=== PATIENT | female | born 1990 | race African-American/Black ===

== ENCOUNTER 2017-06-14 22:25 | Inpatient (IN) ==
[2017-06-14] MEDS ORDERED: KEFZOL 1 GM/D5W 1 GM/50 ML IVPB IV PRN (22:57)
[2017-06-14] MEDS ORDERED: ZOFRAN IV PRN (22:57)
[2017-06-14] MEDS ORDERED: PEPCID IV PRN (22:57)
[2017-06-14] MEDS ORDERED: STADOL IV PRN (22:57)
[2017-06-14] MEDS ORDERED: REGLAN PO ONE (22:57)
[2017-06-14] MEDS ORDERED: TYLENOL PO PRN (22:57)
[2017-06-14] MEDS ORDERED: PEPCID PO ONE (22:57)
[2017-06-14] MEDS ORDERED: PEPCID PO PRN (22:57)
[2017-06-14] MEDS ORDERED: PITOCIN 30 UNITS/LR 30 UNITS/500 ML IV.SOLN IV SCH (22:57)
[2017-06-14] MEDS ORDERED: SODIUM CHLORIDE 0.9% INJ SCH (23:00)
[2017-06-14 23:02] LABS: URINE SOURCE VOIDED
[2017-06-14] MEDS ORDERED: LR 1,000 ML ONE (23:08)
[2017-06-14 23:09] LABS: UR AMPHETAMINES QUAL NONE DETECTED (NONE DETECT); UR BARBITUATES QUAL NONE DETECTED (NONE DETECT); UR BENZODIAZEPIN QUAL NONE DETECTED (NONE DETECT); UR CANNABINOIDS QUAL NONE DETECTED (NONE DETECT); UR COCAINE QUAL NONE DETECTED (NONE DETECT); UR MDMA QUAL NONE DETECTED (NONE DETECT); UR METHADONE QUAL NONE DETECTED (NONE DETECT); UR METHAMPHETAMINE QUAL NONE DETECTED (NONE DETECT); UR OPIATES QUAL NONE DETECTED (NONE DETECT); UR OXYCODONE QUAL NONE DETECTED (NONE DETECT); UR PCP QUAL NONE DETECTED (NONE DETECT); UR TCA QUAL NONE DETECTED (NONE DETECT)
[2017-06-14 23:13] LABS: BILIRUBIN URINE NEGATIVE (NEGATIVE); BLOOD URINE NEGATIVE (NEGATIVE); CLARITY CLEAR (CLEAR); COLOR YELLOW; GLUCOSE URINE NEGATIVE (NEGATIVE); LEUKOCYTES URINE TRACE (NEGATIVE); NITRITE URINE NEGATIVE (NEGATIVE); PROTEIN URINE NEGATIVE (NEGATIVE); SP GRAVITY URINE 1.015; UROBILINOGEN URINE NORMAL
[2017-06-14] MEDS: LR 1,000 ML IV SCH (23:15)
[2017-06-14 23:47] LABS: MANUAL DIFF NEEDED? NO
[2017-06-14 23:52] LABS: BASO% 0.1 % (0.0-0.8); EOS# 0.03 X1000 (0.0-0.7); EOS% 0.4 % (0.0-10.0); HEMATOCRIT 32.1 % (37.0-47.0); HEMOGLOBIN 10.7 g/dL (12.0-16.0); IMM GRAN# 0.02 X1000 (0.0-0.04); IMM GRAN% 0.3 % (0.0-0.5); LYMPH# 1.82 X1000 (1.2-3.4); LYMPH% 24.6 % (20.5-51.1); MCH 30.8 PG (27-31); MCHC 33.3 g/dL (33-37); MCV 92.5 FL (81-99); MONO# 0.83 X1000 (0.11-0.59); MONO% 11.2 % (1.7-9.3); MPV 11.8 FL (7.4-10.4); NEUT% 63.4 % (42.2-75.2); PLT 171 X1000 (130-400); RBC 3.47 XMIL (4.2-5.4)
[2017-06-15] MEDS ORDERED: NAROPIN 0.2% EPIDURAL PRN (00:20)
[2017-06-15] MEDS: LR 1,000 ML IV SCH (06:00)
[2017-06-15] MEDS ORDERED: MINERAL OIL ONE (07:02)
[2017-06-15] MEDS ORDERED: XYLOCAINE-MPF 1% INJ ONE (07:04)
[2017-06-15] MEDS ORDERED: PERCOCET-5 PO PRN (13:29)
[2017-06-15] MEDS ORDERED: PITOCIN IM PRN (13:29)
[2017-06-15] MEDS ORDERED: PERI MEDS (DERMOPLAST/NUPERCAINAL/TUCKS) MISC PRN (13:29)
[2017-06-15] MEDS ORDERED: NORCO-10 PO PRN (13:29)
[2017-06-15] MEDS ORDERED: HYDROXYZINE PO PRN (13:29)
[2017-06-15] MEDS ORDERED: PITOCIN 20 UNITS/LR 20 UNITS/1,000 ML IV.SOLN IV SCH (13:29)
[2017-06-15] MEDS ORDERED: CYTOTEC PO PRN (13:29)
[2017-06-15] MEDS ORDERED: XYLOCAINE-MPF 1% INJ PRN (13:29)
[2017-06-15] MEDS ORDERED: M-M-R II VACCINE SUBQ ONE (13:29)
[2017-06-15] MEDS ORDERED: BOOSTRIX VACCINE IM ONE (13:29)
[2017-06-15] MEDS ORDERED: PITOCIN 30 UNITS/LR 30 UNITS/500 ML IV.SOLN IV ONE (13:29)
[2017-06-15] MEDS ORDERED: AMBIEN PO PRN (13:29)
[2017-06-15] MEDS ORDERED: PERCOCET-10 PO PRN (13:29)
[2017-06-15] MEDS ORDERED: MINERAL OIL PO PRN (13:29)
[2017-06-15] MEDS ORDERED: HYDROXYZINE IM PRN (13:29)
[2017-06-15] MEDS ORDERED: BENADRYL IV PRN (13:29)
[2017-06-15] MEDS ORDERED: BENADRYL PO PRN (13:29)
[2017-06-15] MEDS: MOTRIN PO PRN ×2 (15:12→23:51)
--- NOTE | 2017-06-15 17:58 | OPERATIVE NOTE ---
PROCEDURE DATE: 06/15/2017 DELIVERY PHYSICIAN: Dr. Perez. TYPE OF DELIVERY: Spontaneous controlled vaginal delivery. ANESTHESIA: Epidural. FINDINGS: At 1306 a 6 pound 3 ounce male was delivered in occiput anterior presentation. Apgars are 9 at 1 minute and 10 at 5 minutes. SUMMARY: Ms. Bhatti is a 27-year-old 4, para 3 who is at term gestation. Group B strep is negative. Blood type is B positive. Rubella immune. Hepatitis B surface antigen, HIV also negative. She presented to Labor and Delivery in active labor this morning, membranes were spontaneously ruptured and were clear. She progressed to labor and became complete. She did receive an epidural for labor pain management INCOMPLETE REPORT -- DICTATION ENDS HERE. cc: MD Cheyenne Puckett MD
--- NOTE | 2017-06-15 18:36 | OPERATIVE NOTE ---
PROCEDURE DATE: 06/15/2017 TYPE OF DELIVERY: Spontaneous controlled vaginal delivery. DATE OF DELIVERY: 06/15/2017. DELIVERING PHYSICIAN: Ana. FINDINGS: At 13:06, a 6 pound 3 ounce male infant was delivered in occiput anterior presentation. Apgars are 9 at 1 minute and 10 at 5 minutes. SUMMARY: Ms. Bhatti is a 27-year-old 4, para 3-0-0-3, at 38-5/7 weeks gestation. Her blood type is B positive. Rubella immune. Hepatitis B surface antigen, HIV, and group B strep are negative. She presented to Labor and Delivery yesterday reporting spontaneous rupture of membranes that occurred at 8 p.m. She was admitted. She received an epidural for labor pain management and her contractions were augmented with Pitocin. She became complete and began pushing. She rapidly crowned. At that point, was placed in dorsal lithotomy position. The perineum was prepped and draped in usual fashion. Spontaneous controlled vaginal delivery occurred. Once the infant's head was delivered, the oropharynx was bulb suctioned. The shoulders and body delivered without complications. The cord was clamped and cut and the infant was handed to the nurses for further care and evaluation. Cord blood was obtained. Placenta was spontaneously delivered and was intact. There were no cervical or vaginal lacerations. Blood loss was estimated at 150 mL. Patient remained in the LDR recovering without difficulty. cc: MD Cheyenne Puckett MD
[2017-06-15] MEDS: PERICOLACE PO SCH (20:51)
[2017-06-15] MEDS: NORCO-5 PO PRN (23:51)
[2017-06-16] MEDS: NORCO-5 PO PRN ×2 (06:33→23:15)
[2017-06-16 06:35] LABS: HEMATOCRIT 29.7 % (37.0-47.0); HEMOGLOBIN 9.6 g/dL (12.0-16.0); MCH 30.3 PG (27-31); MCHC 32.3 g/dL (33-37); MCV 93.7 FL (81-99); MPV 11.9 FL (7.4-10.4); RBC 3.17 XMIL (4.2-5.4)
[2017-06-16] MEDS: PERICOLACE PO SCH (20:28)
[2017-06-16] MEDS: PRECARE PO SCH (20:28)
[2017-06-16] MEDS: MOTRIN PO PRN (23:15)
[2017-06-17 08:17] VITALS: BP 112/60
[2017-06-17] MEDS: MOTRIN PO PRN (08:31)
[2017-06-17] MEDS: NORCO-5 PO PRN (08:31)
[2017-06-17] MEDS: PRECARE PO SCH (08:31)
== END 2017-06-17 10:55 | disposition home or self-care (01) ==
LOC: P.OPLD 22:25 → P.LD 22:27 → P.WC 06-15 17:11
PROVIDERS: ADMIT Obstetrics & Gynecology; ATTEND Obstetrics & Gynecology